=== PATIENT | female | born 1985 | race Hispanic/Latino ===

== ENCOUNTER 2024-06-17 11:33 | Emergency (ER) | payer OTHER ==
[2024-06-17] VITALS (10 sets, daily range): BP systolic 126–159; BP diastolic 87–107
[~2024-06-17] VITALS: Ht 165.1 cm; Wt 63.5 kg
[2024-06-17] MEDS ORDERED: AMOX/K CLAV875 M1 PO (12:07)
[2024-06-17] MEDS ORDERED: RABIES VACCINE, PCEC 2.5 UNITS/VIAL SDV IM ONE (12:30)
[2024-06-17] MEDS ORDERED: RABIES IMMUNE GLOBULIN 1,500 IU/10 ML SDV IM ONE (12:35)
== END 2024-06-17 13:52 | disposition home or self-care (01) | DRG 605 ==
LOC: ED 11:33
DX: S61.452A Open bite of left hand, initial encounter (principal); S81.852A Open bite, left lower leg, initial encounter; W54.0XXA Bitten by dog, initial encounter; Y93.89 Activity, other specified; Y99.0 Civilian activity done for income or pay
CPT/HCPCS: 90377